=== PATIENT | female | born 1965 | race Caucasian/White ===

== ENCOUNTER → 2021-02-08 | Day surgery (SDC) | payer OTHER ==
[2021-02-04 15:25] VITALS: BMI 35.4
[~2021-02-08] MED LIST: Lidocaine 1% MPF 2 ML VIAL ONE; Lidocaine 1% PF 5 ML VIAL ONE; Midazolam HCl 2 mg/2 ml Vial ONE; PROPOFOL 20 ML ONE; PROPOFOL 40 ML ONE
== END ==
LOC: CSHSDC 15:14
PROVIDERS: ATTEND Internal Medicine Gastroenterology
PROC: 0DJD8ZZ Inspection of Lower Intestinal Tract, Via Natural or Artificial Opening Endoscopic (ICD-10-PCS; principal; 2021-02-08)
PROC: 0DB68ZZ Excision of Stomach, Via Natural or Artificial Opening Endoscopic (ICD-10-PCS; principal; 2021-02-08)
DX: Z12.11 Encounter for screening for malignant neoplasm of colon (principal); K20.90 Esophagitis, unspecified without bleeding; K21.9 Gastro-esophageal reflux disease without esophagitis; D50.9 Iron deficiency anemia, unspecified; K44.9 Diaphragmatic hernia without obstruction or gangrene; G47.30 Sleep apnea, unspecified; F31.9 Bipolar disorder, unspecified; E03.9 Hypothyroidism, unspecified; D64.9 Anemia, unspecified
CPT/HCPCS: 88305; J2250; J2704

== ENCOUNTER 2022-09-26 16:24 | Inpatient (IN) | payer OTHER ==
[2022-09-26] MEDS ORDERED: Acetaminophen 325 MG TAB PO PRN (17:10)
[2022-09-26] MEDS ORDERED: Ondansetron PF 4 MG/2 ML Vial IVP PRN (17:10)
[2022-09-26] MEDS ORDERED: Ondansetron ODT 4 MG TAB PO PRN (17:10)
[2022-09-26 18:56] VITALS: BMI 43.9
[2022-09-26] MEDS ORDERED: traMADol HCl 50 MG TAB PO PRN (23:49)
[2022-09-26] MEDS ORDERED: Ketorolac Tromethamine 30 MG/ML VIAL IVP SCH (23:59)
[2022-09-27] MEDS: Ampicillin/Sulbactam 3 GM in Sodium Chloride 0.9% 100 ML IVPB SCH ×5 (00:08→21:51)
[2022-09-27 05:11] LABS: #Eosinphils 0.3 10x3/uL (0.0-0.5); #Monocytes 0.7 10x3/uL (0.0-1.1); #Neutrophils 2.7 10x3/uL (1.5-8.4); %Basophils 0.4 % (0.0-2.0); %Eosinophils 5.2 % (0.0-6.0); %Lymphocytes 27.2 % (18.0-47.0); %Neutrophils 53.6 % (40.0-75.0); Hemoglobin 11.1 g/dL (12.0-15.5); Mean Corpuscular HGB CONC 31.7 g/dL (32.0-36.0); Mean Corpuscular Hemoglobin 27.5 pg (27.0-33.0); Mean Corpuscular Volume 86.6 fl (81.6-98.3); Mean Platelet Volume 10.3 fl (7.4-10.4); Platelet Count 249 10x3/uL (150-450); RBC Distribution Width 13.1 % (11.5-14.5); Red Blood Cell (RBC) Count 4.04 10x6/uL (3.90-5.03)
[2022-09-27 05:28] LABS: Anion Gap 17 mmol/L (10-20); BUN (Urea Nitrogen) 9 mg/dL (9.8-20.1); Calc. Creatinine Clearance 127 mL/min (70-130); Calcium 8.9 mg/dL (7.8-10.44); Carbon Dioxide 24 mmol/L (22-29); Chloride 107 mmol/L (98-107); Estimated GFR 79; Glucose 102 mg/dL (70-105); Potassium 3.6 mmol/L (3.5-5.1); Sodium 144 mmol/L (136-145)
[2022-09-27] MEDS ORDERED: tiZANidine HCl 4 MG TAB PO PRN (08:12)
[2022-09-27] MEDS: Loratadine 10 MG TAB PO SCH (09:16)
[2022-09-27] MEDS: DULoxetine 30 MG CAP PO SCH (09:16)
[2022-09-27] MEDS: Gabapentin 300 MG CAP PO SCH ×3 (09:16→21:50)
[2022-09-27] MEDS: Lisinopril 20 MG TAB PO SCH (09:16)
[2022-09-27] MEDS: Cyanocobalamin (Vitamin B-12) 1,000 MCG TAB PO SCH (09:16)
[2022-09-27] MEDS: traMADol HCl 50 MG TAB PO PRN ×2 (12:06→21:50)
[2022-09-28] MEDS: Ampicillin/Sulbactam 3 GM in Sodium Chloride 0.9% 100 ML IVPB SCH ×3 (03:57→14:02)
[2022-09-28] MEDS: Gabapentin 300 MG CAP PO SCH ×3 (09:16→20:08)
[2022-09-28] MEDS: DULoxetine 30 MG CAP PO SCH (09:17)
[2022-09-28] MEDS: Loratadine 10 MG TAB PO SCH (09:17)
[2022-09-28] MEDS: Cyanocobalamin (Vitamin B-12) 1,000 MCG TAB PO SCH (09:17)
[2022-09-28] MEDS: Lisinopril 20 MG TAB PO SCH (09:17)
[2022-09-28] MEDS: Amoxicillin/Potassium Clav 875 MG TAB PO SCH (20:07)
[2022-09-29 06:51] VITALS: TEMP 98.5
[2022-09-29] MEDS: DULoxetine 30 MG CAP PO SCH (08:01)
[2022-09-29] MEDS: Gabapentin 300 MG CAP PO SCH (08:01)
[2022-09-29] MEDS: Lisinopril 20 MG TAB PO SCH (08:01)
[2022-09-29] MEDS: Amoxicillin/Potassium Clav 875 MG TAB PO SCH (08:01)
[2022-09-29] MEDS: Loratadine 10 MG TAB PO SCH (08:02)
[2022-09-29] MEDS: Cyanocobalamin (Vitamin B-12) 1,000 MCG TAB PO SCH (08:02)
[2022-09-29 09:12] VITALS: BP 143/84
== END 2022-09-29 09:43 | disposition home or self-care (01) | DRG 155 ==
LOC: CSHTELE 16:24 → OBSVTOIN 17:10 → CSHTELE 09-27 01:52
PROVIDERS: ADMIT Internal Medicine; ATTEND Family Medicine
DX: K11.20 Sialoadenitis, unspecified (principal); L03.211 Cellulitis of face; I10 Essential (primary) hypertension; E03.9 Hypothyroidism, unspecified; K21.9 Gastro-esophageal reflux disease without esophagitis; F31.9 Bipolar disorder, unspecified; F41.9 Anxiety disorder, unspecified; Z96.642 Presence of left artificial hip joint; G43.909 Migraine, unspecified, not intractable, without status migrainosus; G62.9 Polyneuropathy, unspecified; Z88.8 Allergy status to other drugs, medicaments and biological substances; Z88.2 Allergy status to sulfonamides; Z79.890 Hormone replacement therapy; Z79.899 Other long term (current) drug therapy; Z79.82 Long term (current) use of aspirin; Z90.49 Acquired absence of other specified parts of digestive tract; Z98.84 Bariatric surgery status; Z90.710 Acquired absence of both cervix and uterus; Z98.51 Tubal ligation status; Z87.891 Personal history of nicotine dependence
CPT/HCPCS: 36415; 80048; 85025; 94760; J0295; J1885; J3490

== ENCOUNTER → 2023-08-10 | Day surgery (SDC) | payer OTHER ==
[~2023-08-10] MED LIST changes: +Acetaminophen 500 MG TAB ONE; +Acetaminophen 500 MG TAB PO PRN; -Lidocaine 1% MPF 2 ML VIAL ONE; -Lidocaine 1% PF 5 ML VIAL ONE; -Midazolam HCl 2 mg/2 ml Vial ONE; -PROPOFOL 20 ML ONE; -PROPOFOL 40 ML ONE; +[UNRECOGNIZED DRUG - REMARK] IVPB SCH; +[UNRECOGNIZED DRUG - REMARK] IVPB SCH; +diphenhydrAMINE 25 MG CAP ONE
== END ==
LOC: CSHSDC 05:53
PROVIDERS: ATTEND Student in an Organized Health Care Education/Training Program
DX: K90.9 Intestinal malabsorption, unspecified (principal)
CPT/HCPCS: J7050; Q0138